=== PATIENT | female | born 2000 | race Caucasian/White ===

== ENCOUNTER 2023-04-23 21:54 | Emergency (ER) | payer SELFPAY ==
[2023-04-23 22:12] VITALS: BP 114/69; PULSE 94; RESP 20; TEMP 98.7; BMI 21.0
== END 2023-04-23 23:05 | disposition home or self-care (01) ==
LOC: JER 21:54
DX: S82.832A Other fracture of upper and lower end of left fibula, initial encounter for closed fracture (principal); W01.0XXA Fall on same level from slipping, tripping and stumbling without subsequent striking against object, initial encounter
CPT/HCPCS: 99282-25